=== PATIENT | female | born 1955 ===

== ENCOUNTER 2019-03-05 07:36 | Day surgery (SDC) | payer OTHER ==
[2019-03-05] VITALS (10 sets, daily range): BP systolic 111–124; BP diastolic 56–76
[~2019-03-05] VITALS: Ht 152.4 cm; Wt 54.4 kg
[2019-03-05] MEDS ORDERED: CYMBALTA30 MG ORAL (08:05)
[2019-03-05] MEDS ORDERED: FAMOTIDINE40 MG ORAL (08:05)
[2019-03-05] MEDS ORDERED: OMEPRAZOLE40 M1 ORAL (08:05)
[2019-03-05] MEDS ORDERED: LR 1000ml ONE (08:30)
[2019-03-05] MEDS ORDERED: Lidocaine 1% MPF 10mg/ml 5ml ONE (08:30)
[2019-03-05] MEDS ORDERED: Propofol 200mg/20ml IV ONE (08:30)
--- NOTE | 2019-03-05 08:33 | Short Stay Surgery H&P ---
History of Present Illness History of Present Illness Chief Complaint GERDs abdominal pains/nausea KATHRYN Root is a 64 year old female who was admitted on for GERD/abdominal pains/nausea Patient History Allergies: Coded Allergies: No Known Allergies (Unverified , 03/05/19) PAST MEDICAL HISTORY: (1) Arthritis (2) History of carpal tunnel surgery Medication History Scheduled Duloxetine Hcl* (Cymbalta*), 30 MG ORAL DAILY, (Reported) Famotidine (Famotidine), 40 MG ORAL DAILY, (Reported) Omeprazole (Omeprazole), 40 MG ORAL DAILY, (Reported) Review of Systems Cardiovascular: Reports: no symptoms Respiratory: Reports: no symptoms Gastrointestinal: Reports: gastro esophageal reflux disease Genitourinary: Reports: no symptoms Neurologic: Reports: no symptoms Endocrine: Reports: no symptoms Physical Exam Vital Signs Last Vital Signs Date Time Temp Pulse Resp B/P (MAP) Pulse Ox O2 Delivery O2 Flow Rate FiO2 03/05/19 08:08 Room Air 03/05/19 08:06 98.2 59 16 121/73 100 Skin: normal HENT: normal Heart: normal Lungs: normal Abdomen: abnormal Extremities: normal Genitourinary: normal Plan Plan of Care Upper GI. endoscopy with biopy Preop Interventions None. Summary of Findings See the reports Attestation Are the patient's medical conditions optimized for surgery? Attestation Response: yes Arlin Castillo MD March 05, 2019 08:33
--- NOTE | 2019-03-05 08:34 | Pre-Procedure Note/Attestation ---
Pre-Procedure Note/Attestation Complete Prior to Procedure Planned Procedure: left Procedure Narrative: Examination of the upper GI tract via endoscopy Indications for Procedure Pre-Operative Diagnosis: R/O Esophagitis/peptic ulcer Attestation I attest that I discussed the nature of the procedure; its benefits; risks and complications; and alternatives (and the risks and benefits of such alternatives ), prior to the procedure, with the patient (or the patient's legal publications sales representative). I attest that, if there was a reasonable possibility of needing a blood transfusion, the patient (or the patient's legal publications sales representative) was given the [facility] standardized written summary, pursuant to the [employer] Angel Iglesia Blood Safety Act ([place] Health and Safety Code # 1645, as amended). I attest that I re-evaluated the patient just prior to the surgery and that there has been no change in the patient's H&P, except as documented below: Arlin Castillo MD March 05, 2019 08:34
--- NOTE | 2019-03-05 08:40 | Endoscopy Procedure Note ---
Endoscopy Procedure Note General Indication for Procedure: Abdominal pains/nausea and heartburn Procedures Performed: EGD - Minimal gastritis otherwise normal Upper GI endoscopy, biopsy taken per random from gastric body. Specimen: yes Pt Tolerated Procedure Well: Yes Estimated Blood Loss: none Anesthesia Anesthesiologist: Dr. Kuo Anesthesia: moderate sedation Medications Medication Given: see anesthesia record Inserted Devices Implant(s) used?: No Quality Quality of Bowel Preparation: Excellent Was there any complications?: No GI Core Measures 50 yrs or older w/o bx or poly: Not Applicable 10yrs. F/U not recommended: Not Applicable If not recommended, why?: Med reason:<3 yrs.: System Reason:<3 yrs.: Arlin Castillo MD March 05, 2019 08:40
[2019-03-05] MEDS ORDERED: LR 1000ml 1,000 ML IVLG SCH (08:41)
--- NOTE | 2019-03-05 08:41 | Anethesia Preoperative Eval ---
Anesthesia Pre-op PMH/ROS General Date of Evaluation: March 05, 2019 Time of Evaluation: 08:27 Anesthesiologist: blanca ASA Score: ASA 3 Mallampati Score Class I : Soft palate, uvula, fauces, pillars visible Class II: Soft palate, uvula, fauces visible Class III: Soft palate, base of uvula visible Class IV: Only hard plate visible Mallampati Classification: Class II Surgeon: all Diagnosis: gerd Surgical Procedure: egd Anesthesia History: none Social History: smoking - nonmoker Family History: no anesthesia problems Allergies: Coded Allergies: No Known Allergies (Unverified , 03/05/19) Medications: see eMAR Patient NPO?: Yes Past Medical History Gastrointestinal/Genitourinary: Reports: GERD Neurologic/Psychiatric: Reports: depression/anxiety Musculoskeletal/Integumentary: Reports: other - osteomyelitis Anesthesia Pre-op Phys. Exam Physician Exam Last Vital Signs Date Time Temp Pulse Resp B/P (MAP) Pulse Ox O2 Delivery O2 Flow Rate FiO2 03/05/19 08:08 Room Air 03/05/19 08:06 98.2 59 16 121/73 100 Constitutional: NAD Neurologic: CN 2-12 intact Cardiovascular: RRR Respiratory: CTA Gastrointestinal: S/NT/ND Airway Exam Mallampati Score: Class III MO: full Neck: flexible TMD: 2fb ROM: full Anesthesia Pre-op A/P Risk Assessment & Plan Assessment: asa3 Plan: mac Status Change Before Surgery: No Pre-Antibiotics Drug: Radha Sullivan MD March 05, 2019 08:41
--- NOTE | 2019-03-05 08:42 | Discharge Instructions ---
Discharge Instructions Discharge Instructions Follow up with: Visit the doctor after 2 weeks in office For Congestive Heart Failure Reminder Report to your physician any weight gain of 5 pounds or more in one week. Arlin Castillo MD March 05, 2019 08:42
[2019-03-05] MEDS ORDERED: DiphenhydrAMINE 50mg/ml Inj IVP PRN (08:45)
[2019-03-05] MEDS ORDERED: fentaNYL 100 mcg/2 mL IV PRN (08:45)
[2019-03-05] MEDS ORDERED: Atropine Inj 1mg/10ml Syr IV PRN (08:45)
[2019-03-05] MEDS ORDERED: Midazolam 2mg/2ml Inj IVP PRN (08:45)
--- NOTE | 2019-03-05 09:42 | Immediate Post-Op Evaluation ---
Immediate Post-Op Evalulation Immediate Post-Op Evalulation Procedure: egd w/bx Date of Evaluation: March 05, 2019 Time of Evaluation: 09:04 IV Fluids: 150ml lr Blood Products: none Estimated Blood Loss: negligible Blood Pressure Systolic: 126 Blood Pressure Diastolic: 56 Pulse Rate: 66 Respiratory Rate: 18 O2 Sat by Pulse Oximetry: 96 Temperature (Fahrenheit): 97.9 Pain Score (1-10): 0 Nausea: No Vomiting: No Complications none Patient Status: awake, reacts, patent Hydration Status: adequate Drug: Radha Sullivan MD March 05, 2019 09:42
--- NOTE | 2019-03-05 09:42 | 48 Hour Post Anesthesia Eval ---
Post Anesthesia Evaluation Procedure: egd w/bx Date of Evaluation: March 05, 2019 Time of Evaluation: 09:06 Blood Pressure Systolic: 111 0: 71 Pulse Rate: 55 Respiratory Rate: 18 Temperature (Fahrenheit): 97.9 O2 Sat by Pulse Oximetry: 99 Airway: patent Nausea: No Vomiting: No Pain Intensity: 0 Hydration Status: adequate Cardiopulmonary Status: stable Mental Status/LOC: patient returned to baseline Post-Anesthesia Complications: none Follow-up care needed: N/A Radha Kuo MD March 05, 2019 09:42
--- NOTE | 2019-03-05 16:00 | Procedure Note ---
DATE OF PROCEDURE: 03/05/2019 SURGEON: Arlin Castillo M.D. PROCEDURE: Esophagogastroduodenoscopy with biopsy. PREOPERATIVE DIAGNOSES: 1. Nausea. 2. Abdominal pain. 3. Gastroesophageal reflux. POSTOPERATIVE DIAGNOSIS: Mild gastritis, otherwise completely normal upper GI endoscopy. Biopsy was taken per random from gastric body. MEDICATION USED: Per Dr. Velazco anesthesiologist. INSTRUMENT: GIF Olympus upper GI video endoscope. DESCRIPTION OF PROCEDURE: The patient after arriving endoscopy unit, was told about risks and benefits of the procedure which she accepted and signed informed consent. She was then put on the left lateral decubitus position. After adequate IV sedation, the scope was gently passed through the cricopharyngeal area, was lodged into the upper esophagus and gradually advanced towards gastroesophageal junction. The entire length of the esophagus looked normal. No evidence of varices inflammatory process, ulceration etc. was found. GE junction also looked normal. No evidence of Orosco's or hiatal hernia. At this time, the scope was advanced into the stomach. Gastric cavity was distended with insufflation of air. There revealed evidence of minimal erythema and edema of the gastric folds, which were not significant and again consistent with minimal gastritis, otherwise it looked completely normal. One random biopsy from gastric body obtained and the rest of the stomach was examined as the scope was advanced through the pylorus. First and second portion of duodenum were found to be also within normal limits. At this time, the scope was pulled out and the scope was retroflexed and the area of the gastroesophageal junction was examined in a closer fashion, which again revealed normal findings. Finally, the scope was pulled out and the procedure was terminated. The patient tolerated the procedure well, left the endoscopy room in a good condition. Arlin Castillo M.D. DR: Vik JOB#: [id number] CC:
--- NOTE | 2019-03-05 17:30 | Pre-op HX & Phy Repo 2 SIG ---
DATE OF ADMISSION: 03/05/2019 HISTORY OF PRESENT ILLNESS: The patient is being seen prior to undergoing the procedure of upper GI endoscopy for which she has been scheduled to receive prior to receiving upper GI endoscopy. I examined the patient today. She basically has been suffering from the pain having been experienced over the upper part of the abdomen along with symptoms of nausea and heartburn. After the patient was seen by me in the office approximately a couple of months ago with similar symptoms. At this time, the patient reports that she has also symptoms of nausea, which is intermittent in nature and the pain is reported to be moderate in intensity. She reports that after eating food, she started to experience these pains as well. She has been treated in the past with some acid suppressors along with the H2 blockers such as Pepcid/famotidine. She is also currently taking these medications as well. Her main concern is the nausea the cause of which still is not clear for her. She does have symptoms of gastroesophageal reflux disease. Occasionally, she is awakened during the night and she feels some pain and discomfort over the upper part of the chest. She reports that she has been taking nonsteroidal anti-inflammatory agents subsequent to her injuries at work, which seems to have been causing all these gastrointestinal symptoms as reported. 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 In this process, she has had injuries over the body, which required prescription of nonsteroidal anti-inflammatory agents. PAST MEDICAL HISTORY: Basically not significant. She denies having high cholesterol, diabetes, or history of hypertension. She does have history of diagnosis for arthritis, however. Also, she has been diagnosed to have a carpal tunnel syndrome requiring surgery. PAST SURGICAL HISTORY: Quite significant, but mostly carpal tunnel syndrome, elbow surgery and also surgery over the right knee and the left shoulder and also left hand tear of the tendon, which required surgeries. ALLERGIES: None significant. PHYSICAL EXAMINATION: GENERAL: At this time reveals, alert, oriented, and very pleasant female, does not seem to be in any acute distress . VITAL SIGNS: Temperature 98.2, pulse rate is 107, blood pressure 121/73, and respiratory rate is 16. HEENT: Normocephalic. Pupils equal in size and reactive to light and accommodation. No visible jaundice. Buccal cavity, tongue midline, well hydrated. NECK: Supple. No JVD, thyromegaly, or adenopathy. CHEST: Clear to auscultation and percussion. No rales or rhonchi. HEART: S1, S2 normal. Regular rhythm. No gallops or murmur. ABDOMEN: Soft, but there is areas of mild tenderness over the upper part of the abdomen. No organomegaly. No masses noted. EXTREMITIES: Unremarkable. SKIN: Unremarkable. LYMPHATICS: Unremarkable. PRELIMINARY PREOPERATIVE IMPRESSION: 1. Epigastric pain with nausea of uncertain etiology, rule out NSAID-induced gastropathy, peptic ulcer disease, or duodenal ulcer. 2. History of gastroesophageal acid reflux aggravated by side effects of NSAID medications. 3. Nausea of uncertain etiology, rule out generalized gastritis with peptic ulcer disease. RECOMMENDATIONS: The applicant seems to be quite stable at this time to undergo the procedure of upper GI endoscopy for which she has been scheduled. She understands the risks and benefits and will sign the consent. Said Ghanshyam Castillo DR: MAR JOB#: [id number] CC:
== END 2019-03-05 10:15 | disposition home or self-care (01) ==
LOC: GAS 07:36
DX: R10.9 Unspecified abdominal pain (principal); K21.9 Gastro-esophageal reflux disease without esophagitis; R11.0 Nausea; K29.70 Gastritis, unspecified, without bleeding; M19.90 Unspecified osteoarthritis, unspecified site; F32.9 Major depressive disorder, single episode, unspecified; F41.9 Anxiety disorder, unspecified
CPT/HCPCS: 43239; J2704; 94003; 94150